=== PATIENT | male | born 1955 | race Caucasian/White ===

== ENCOUNTER 2021-09-19 14:01 | Observation (INO) | payer MEDICARE, OTHER, SELFPAY ==
--- NOTE | ~2021-09-19 | CT_ITS ---
EXAMINATION: CTA chest PE protocol DATE: 09/19/2021 15:15 TRANSPORTATION MODELER INDICATION: Covid. Dyspnea. TECHNIQUE: Computed tomographic angiography (CTA) of the chest was performed with 100 mL Omnipaque-35 0 intravenous contrast. The dose-length product was 646.20 mGy-cm. Maximum intensity projection 3D-re constructions of the aorta and other arteries were constructed by the technologist on a separate work station. Automated exposure control and iterative reconstruction technique were employed. COMPARISON: CT dated 01/28/2016. FINDINGS: Study is technically adequate. There are filling defects in subsegmental pulmonary arteries of the left lower lobe, consistent with pulmonary embolism. There is mild thoracic lymphadenopathy, likely reactive. No evidence for aortic aneurysm or dissection. No significant pleural or pericardial effusion. Heart size is normal. There is patchy bilateral groundglass opacification, consistent with pneumonia. There are calcified granulomas of the lung parenchyma. There is a 12 mm left renal stone. There is an extrarenal left renal pelvis. There is mild scoliosis. No acute osseous abnormality. IMPRESSION: 1. Pulmonary embolism of the left lower lobe subsegmental pulmonary arteries, small thrombus burden. 2: Patchy bilateral groundglass opacities, compatible with pneumonia. Reviewed, dictated and finalized at location A. SPORTATION MODELER IMPRESSION: 1. Pulmonary embolism of the left lower lobe subsegmental pulmonary arteries, s mall thrombus burden. 2: Patchy bilateral groundglass opacities, compatible with pneumonia.
--- NOTE | 2021-09-19 14:13 | ECG_ITS ---
Measurements Intervals [place] Rate: 96 P: 25 TX: 176 QRS: 48 QRSD: 91 T: 38 QT: 319 QTc: 405 Interpretive Statements SINUS RHYTHM INCOMPLETE RIGHT BUNDLE BRANCH BLOCK CONSIDER INFERIOR INFARCT, AGE INDETERMINATE BASELINE ARTIFACT- III, V2 ABNORMAL ECG Electronically Signed On 09-19-2021 15:05:50 BIOPSYCHOLOGIST by Pablito Eagle D.O.
[2021-09-19 14:20] VITALS: BP 134/81; PULSE 108; RESP 16; TEMP 37.2; O2SAT 99
--- NOTE | 2021-09-19 14:29 | ED.URI ---
HPI - URI/Sore Throat General Chief Complaint: Upper Respiratory Infection Stated Complaint: covid positive, sob Time Seen by Provider: 09/19/21 14:03 Source: RN notes reviewed History of Present Illness HPI Narrative: Patient presents emergency room from home for shortness of breath. Patient states he was diagnosed with COVID-19 with a positive test on 09/15/2021 and states has had symptoms since 09/12/2021 states has had a cough has been nonproductive with increasing shortness of breath as well as subjective fevers he denies any rhinorrhea chest pain abdominal pain vomiting or diarrhea but does note nausea states he did not receive the COVID-19 vaccination patient's test was done at [place] Related Data Allergies Allergy/AdvReac Type Severity Reaction Status Date / Time No Known Allergies Allergy Unverified 01/28/16 11:24 Review of Systems Review of Systems: Gen.: Reports objective fevers Eyes: Denies eye pain or visual change ENT: Denies congestion Respiratory: D see HPI CV: Denies chest pain or palpitations GI: Denies abdominal pain nausea, emesis or diarrhea Musculoskeletal: Denies back pain or muscle pain Neuro: Denies numbness, tingling, weakness or focal weakness Skin: Denies rash Except as documented, all other systems reviewed and negative FORMERLY [facility] Past Medical History Medical History (Updated 09/19/21 @ 15:37 by Kishan Arriaga DO) Patient denies significant medical history Family History Family History (Updated 06/22/14 @ 07:13 by DOCTOR UNKNOWN) Father Family history of heart disease in male family member before age 55 Patient's father is Mother Family history of heart disease in male family member before age 55 Sibling Family history of lung cancer Social History Social History Smoking status: Former smoker Second hand tobacco smoke exposure: No Smoking end date: 10/26/06 Alcohol intake: current Exam Narrative: APPEARANCE: No acute distress, nontoxic, resting in bed EYES: EOMI HEENT: Normocephalic, atraumatic, OMM RESPIRATORY: No respiratory distress Clear to auscultation bilaterally with no rhonchi wheezing or rales. CARDIOVASCULAR: Regular rate and rhythm without murmurs rubs or gallops. ABDOMINAL: Soft, nontender, nondistended, no rebound or guarding MUSCULOSKELETAl: Moves all extremities. No clubbing, cyanosis or edema. NEURO: Awake and alert. Following commands, speech normal, no focal deficits SKIN:: Warm, dry. No rashes lesions or abrasions PSYCHIATRIC: Normal affect/mood, Course Course Emergency Course: Discussed with RENA Muro for Dr Colmenares presentation work-up agrees with admission at this time agrees with plan start patient on Lovenox Discussed with patient and family results of workup and diagnosis. Discussed need for admission. Patient and family understand and agree to current treatment plan Vital Signs Vital signs: Vital Signs Temperature 99.0 F 09/19/21 14:20 Pulse Rate 108 H 09/19/21 14:20 Respiratory Rate 16 09/19/21 14:20 Blood Pressure 134/81 09/19/21 14:20 Pulse Oximetry 99 09/19/21 14:20 Temperature 99.0 F 09/19/21 14:20 Pulse Rate 108 H 09/19/21 14:20 Respiratory Rate 16 09/19/21 14:20 Blood Pressure 134/81 09/19/21 14:20 Pulse Oximetry 99 09/19/21 14:20 MDM - URI/Sore Throat Lab Data Result diagrams: 09/19/21 14:25 09/19/21 14:25 Labs: Lab Results 09/19/21 09/19/21 09/19/21 Range/Units 14:25 14:25 14:25 WBC 6.7 (4.5-10.0) K/mm3 RBC 4.95 (4.6-6.20) M/mm3 Hgb 15.5 (14.0-18.0) g/dL Hct 44.6 (42.0-52.0) % MCV 90.1 (80-100) fl MCH 31.3 (26-34) pg MCHC 34.8 (32-36) g/dl RDW 12.7 (11.5-14.5) % Plt Count 167 (150-375) k/mm3 MPV 9.5 (7.4-10.4) fl Immature Gran % (Auto) 0.6 H (0-0.5) % Neut % (Auto) 77.8 H (45.5-73.1) % Lymph % (Auto) 12
[2021-09-19 14:31] LABS: Basophils Percent Auto 0.3 % (0.2-1.2); Hematocrit 44.6 % (42.0-52.0); Hemoglobin 15.5 g/dL (14.0-18.0); Immature Granulocyte Absolute 0.04 K/mm3 (0.00-0.031); Immature Granulocyte Percent A 0.6 % (0-0.5); Lymphocytes Absolute Auto 0.83 K/mm3 (0.9-3.2); Lymphocytes Percent Auto 12.4 % (18.3-44.2); Mean Corpuscular HGB Conc 34.8 g/dl (32-36); Mean Corpuscular Hemoglobin 31.3 pg (26-34); Mean Corpuscular Volume 90.1 fl (80-100); Mean Platelet Volume 9.5 fl (7.4-10.4); Monocytes Absolute Auto 0.6 K/mm3 (0.1-0.6); Monocytes Percent Auto 8.9 % (2.6-8.5); Neutrophils Absolute Auto 5.2 K/mm3 (1.3-6.7); Neutrophils Percent Auto 77.8 % (45.5-73.1); Platelet Count Result 167 k/mm3 (150-375); Red Blood Count 4.95 M/mm3 (4.6-6.20); Red Cell Distribution Width 12.7 % (11.5-14.5); White Blood Count 6.7 K/mm3 (4.5-10.0)
[2021-09-19 14:47] LABS: Alanine Aminotransferase 26 U/L (4-50); Albumin Level 4.2 g/dL (3.5-5.1); Alkaline Phosphatase 93 U/L (38-126); Anion Gap 13 mmol/L (8-16); Aspartate Amino Transferase 26 U/L (17-59); Bilirubin,Total 0.7 mg/dL (0.2-1.3); Blood Urea Nitrogen 21 mg/dL (9-20); CRP 1.8 mg/dL (<1.0); Calcium 8.6 mg/dL (8.4-10.2); Carbon Dioxide 26 mmol/L (22-30); Chloride 97 mmol/L (98-107); Estimated Glomerular Filt Rate > 60; Glucose 125 mg/dL (65-110); Lactate Dehydrogenase 478 U/L (313-618); Potassium 4.1 mmol/L (3.4-5.0); Sodium 136 mmol/L (137-145)
[2021-09-19 15:01] LABS: Partial Thromboplastin Time 30.2 SECONDS (22.3-36.8); Prothrombin Time 12.8 Seconds (11.1-14.7)
[2021-09-19 15:04] LABS: D Dimer 1.27 ug/mL (<0.48)
[2021-09-19] MEDS: ENOXAPARIN 100 MG/ML SYRINGE 86 MG SUB-Q (15:55)
--- NOTE | 2021-09-19 16:00 | PM.IMHP ---
H&P: HPI History of Present Illness Date/Time: 09/19/21 16:00 Chief Complaint: Shortness of breath. 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 He began feeling unwell last with multiple symptoms including generalized malaise, sinus congestion, cough, nausea, decrease in taste and smell, and low-grade fever. He was seen at [facility] urgent [facility] last Thursday at which time he was prescribed doxycycline and a Medrol Dosepak for bronchitis. He was also tested for COVID at that time and was told that he tested positive a couple of days thereafter. He has been taking ibuprofen as needed and Mucinex although over the last several days he has been increasingly more short of breath and thus he came in today for evaluation. Chest CTA showed a pulmonary embolism of the left lower lobe subsegmental pulmonary arteries with a small thrombus burden as well as patchy bilateral ground-glass opacities compatible with pneumonia. He denies chest pain, pleuritic pain, and edema. No recent long distance travel or history of venous thromboembolism. He did not get vaccinated for COVID and received no early treatment for such aside from the Medrol Dosepak and doxycycline as above. Review of Systems Review of Systems: Twelve systems were reviewed. Except as documented, all other systems were reviewed and are negative. FOR[facility]LY [facility] Past Medical History Medical History (Updated 09/19/21 @ 22:13 by Jina Moore PA-C) Arthritis 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 Normal cardiac stress test (05/09/16) Obstructive sleep apnea treated with BiPAP Surgical History Surgical History (Updated 09/19/21 @ 22:13 by Jina Moore PA-C) History of cataract extraction Family History Family History Father Family history of heart disease in male family member before age 55 Hypertension Mother Hypertension Sibling Lung cancer Hypertension Social History Social History (Updated 09/19/21 @ 22:14 by Jina Moore PA-C) Social History: Surrogate decision maker: Malia Washington, daughter. Code status: Full code. Smoking packs per day: 1.5 Smoking cigarettes per day: 30.0 Years smoked: 20 Smoking pack-years: 30.00 Smoking status: Former smoker Tobacco type: cigarettes Second hand tobacco smoke exposure: No Alcohol intake: current Drinks per week: 3 Substance use: never Additional living arrangements comments: Patient lives in his own home in [place]. Additional occupation/education comments: Retired from the [employer] after 21 years. Meds Home Medications and Allergies Home Medications Medication Instructions Recorded Confirmed Type doxycycline hyclate 100 mg PO BID 09/19/21 09/19/21 History methylprednisolone See Rx Instructions .ROUTE .COMPLEX 09/19/21 09/19/21 History Allergies Allergy/AdvReac Type Severity Reaction Status Date / Time No Known Allergies Allergy Unverified 01/28/16 11:24 Vital Signs Vital Signs - 24 hr 09/19/21 14:20 Temperature 99.0 F Pulse Rate 108 H Respiratory Rate 16 Blood Pressure 134/81 Pulse Oximetry 99 Exam Narrative: General: Mildly ill-appearing male sitting up in bed. Weight: 86 kg. BMI: 26.4. HEENT: PERRL, EOMI. Sclerae anicteric. Tacky mucous membranes. Oropharynx clear. Neck: Supple. No JVD or adenopathy. Respiratory: Respirations are even and nonlabored and he is speaking in full sentences. Faint crackles heard at the left base with some rhonchi that clear with cough. Cardiovascular: Regular rate and rhythm with S1-S2. Gastrointestinal: Abdomen is soft, nontender, and non
[2021-09-19 16:15] LABS: NT Pro B Type Natriuretic Pept 61 pg/mL (5-100); Troponin I < 0.012 ng/mL (0.000-0.034)
[2021-09-19 16:40] VITALS: BP 123/77; PULSE 95; RESP 16; O2SAT 95
[2021-09-19] MEDS: ONDANSETRON INJ 4 MG/2 ML VIAL IV PUSH (18:13)
[2021-09-19 18:18] VITALS: BMI 26.4
--- NOTE | 2021-09-19 18:23 | ADMGEN ---
This patient, Albaro Washington, was admitted to 3 [facility] Surg Room 329-01 and 1715. Patient/family oriented to hospital policies and general routines including ID bracelet, bed and alarms, visiting hours, pain management, procedures, bathroom and other care routines, personal items, smoking policy, room service/diet, and visiting hours. Information on how to activate the Rapid Response Team has been discussed. Patient/Family are encouraged to report perceived risks to care and to ask questions if they do not understand what they are told or what they should do.
[2021-09-19 20:00] VITALS: PULSE 93
[2021-09-19] MEDS: DOXYCYCLINE HYCLATE 100 MG TABLET PO (23:29)
[2021-09-19] MEDS: guaiFENesin 12 HR 600 MG TABCR PO (23:29)
[2021-09-19 23:43] VITALS: BP 118/69; PULSE 84; RESP 16; TEMP 38; O2SAT 95
[2021-09-20] VITALS (10 sets, daily range): BP systolic 117–126; BP diastolic 71–84; PULSE 45–99; RESP 16–20; TEMP 36.1–37; O2SAT 91–97
[2021-09-20] MEDS: ENOXAPARIN 100 MG/ML SYRINGE 86 MG SUB-Q ×2 (05:38→18:11)
[2021-09-20 08:10] LABS: Basophils Percent Auto 0.3 % (0.2-1.2); Hematocrit 41.1 % (42.0-52.0); Hemoglobin 14.1 g/dL (14.0-18.0); Immature Granulocyte Absolute 0.04 K/mm3 (0.00-0.031); Immature Granulocyte Percent A 0.6 % (0-0.5); Lymphocytes Percent Auto 24.8 % (18.3-44.2); Mean Corpuscular HGB Conc 34.3 g/dl (32-36); Mean Corpuscular Hemoglobin 30.7 pg (26-34); Mean Corpuscular Volume 89.5 fl (80-100); Monocytes Absolute Auto 0.7 K/mm3 (0.1-0.6); Monocytes Percent Auto 9.8 % (2.6-8.5); Neutrophils Absolute Auto 4.7 K/mm3 (1.3-6.7); Neutrophils Percent Auto 64.5 % (45.5-73.1); Platelet Count Result 177 k/mm3 (150-375); Red Blood Count 4.59 M/mm3 (4.6-6.20); Red Cell Distribution Width 12.8 % (11.5-14.5); White Blood Count 7.3 K/mm3 (4.5-10.0)
[2021-09-20 08:22] LABS: Anion Gap 6 mmol/L (8-16); Blood Urea Nitrogen 20 mg/dL (9-20); Calcium 8.4 mg/dL (8.4-10.2); Carbon Dioxide 30 mmol/L (22-30); Chloride 99 mmol/L (98-107); Estimated CRCL calculation 78 ml/min; Estimated Glomerular Filt Rate > 60; Glucose 116 mg/dL (65-110); Potassium 4.3 mmol/L (3.4-5.0); Sodium 135 mmol/L (137-145)
[2021-09-20] MEDS: DOXYCYCLINE HYCLATE 100 MG TABLET PO ×2 (09:23→21:01)
[2021-09-20] MEDS: guaiFENesin 12 HR 600 MG TABCR PO ×2 (09:23→21:01)
[2021-09-20] MEDS: ASCORBIC ACID 500 MG TABLET PO (09:23)
[2021-09-20 11:57] LABS: Glucose Point of Care 87 mg/dl (65-105)
[2021-09-20] MEDS: CHOLECALCIFEROL 400 UNITS TABLET (VIT D) PO (12:10)
[2021-09-20] MEDS: ZINC SULFATE 220 MG CAPSULE PO (12:10)
--- NOTE | 2021-09-20 14:58 | PM.IMPN ---
Progress Note: A&P Assessment and Plan (1) Pneumonia: Code(s): J18.9 - Pneumonia, unspecified organism Status: Acute (2) COVID-19: Code(s): U07.1 - COVID-19 Status: Acute (3) Pulmonary embolism: Code(s): I26.99 - Other pulmonary embolism without acute cor pulmonale Status: Acute Additional Plan The patient presented to the emergency department today with worsening shortness of breath over last several days though he has not felt well for about a week. He was seen at [place] urgent care last Thursday at which time he tested positive for COVID 19. He was given a Medrol Dosepak and finished that yesterday and he still has several days left of the doxycycline. Continue doxycycline to complete the course. He has no oxygen requirements thus there is no indication for further steroids or remdesivir. He has been started on Lovenox 1 milligram/kilogram b.i.d. given subsegmental pulmonary embolism, likely secondary to COVID-19. Obtain venous Doppler ultrasounds of lower legs to evaluate for possible DVT. I will ask the care coronary as to hicks Kurtis with his insurance company. He is having no chest pain within normal be and P and troponin there is no indication for echocardiogram at this time. 09/20/21 14:58 Interval history: patient is 65-year-old male was admitted with a cough shortness of breath patient is positive for COVID-19 and is found to her pneumonia suspicious for aspiration and being treated with Zosyn will add doxycycline, for COVID patient is also low-dose of dexamethasone, patient is sitting in the chair, today patient states is feeling little better patient is on room air, will continue to monitor and further recommendation to follow. Subjective Date/time seen: 09/20/21 14:58 patient is 65-year-old male was admitted with a cough shortness of breath patient is positive for COVID-19 and is found to her pneumonia suspicious for aspiration and being treated with Zosyn will add doxycycline, for COVID patient is also low-dose of dexamethasone, patient is sitting in the chair, today patient states is feeling little better patient is on room air, will continue to monitor and further recommendation to follow. Review of Systems Review of Systems: All systems reviewed & are unremarkable except as noted in HPI and below Exam Narrative: patient appears chronically ill older than his age Patient is comfortable, NAD HEENT: eyes are clear and none icteric LUNGS: normal respiratory effort ABD: not distended Lower extremities: no edema SKIN: nonjaundiced Neuro: grossly intact. Objective Data Vital Signs Vital Signs: Vital Signs - 24 hr 09/19/21 16:40 09/19/21 20:00 09/19/21 23:43 Temperature 100.4 F H Pulse Rate 95 93 84 Respiratory Rate 16 16 Blood Pressure 123/77 118/69 Pulse Oximetry 95 95 09/20/21 00:00 09/20/21 04:00 09/20/21 08:00 Temperature 98.4 F Pulse Rate 81 85 79 Respiratory Rate 18 Blood Pressure 126/71 Pulse Oximetry 97 09/20/21 08:46 09/20/21 12:10 Temperature 98.4 F 98.6 F Pulse Rate 85 45 L Respiratory Rate 18 16 Blood Pressure 117/76 126/79 Pulse Oximetry 95 92 Intake/Output Intake/Output: Intake & Output 09/17/21 09/18/21 09/19/21 09/20/21 23:59 23:59 23:59 23:59 Intake Total 240 Balance 240 Meds/Results Medications: Active Medications Generic Name Dose Route Start Last Admin Trade Name Freq PRN Reason Stop Dose Admin Acetaminophen 650 mg 09/20/21 01:30 Acetaminophen 325 Mg Tablet PO Q4H PRN Pain or Fever Albuterol 2 puff 09/19/21 22:21 Albuterol Sulfate (*Sp) Aerosol 1 Puff INHALATION QIDRT PRN Shortness Of Breath Ascorbic Acid 500 mg 09/20/21 09:00 09/20/21 09:23 Ascorbic Acid 500 Mg Tablet PO 500 mg DAILY DULCE Administration Dexamethasone Sodium Phosphate 10 mg 09/20/21 12:00 09/20/21 13:38 Dexamethasone Sod Phos Inj 10 Mg/Ml 1 Ml Vial IV PUSH 10 mg [id number]
[2021-09-20 16:44] LABS: Glucose Point of Care 160 mg/dl (65-105)
[2021-09-21] VITALS (8 sets, daily range): BP systolic 105–130; BP diastolic 68–85; PULSE 60–84; RESP 16–18; TEMP 35.5–36.6; O2SAT 94–98
[2021-09-21 06:18] LABS: Hematocrit 41.6 % (42.0-52.0); Hemoglobin 14.6 g/dL (14.0-18.0); Mean Corpuscular HGB Conc 35.1 g/dl (32-36); Mean Corpuscular Hemoglobin 31.3 pg (26-34); Mean Corpuscular Volume 89.3 fl (80-100); Platelet Count Result 173 k/mm3 (150-375); Red Blood Count 4.66 M/mm3 (4.6-6.20); Red Cell Distribution Width 12.2 % (11.5-14.5); White Blood Count 3.4 K/mm3 (4.5-10.0)
[2021-09-21 06:32] LABS: Anion Gap 7 mmol/L (8-16); Blood Urea Nitrogen 20 mg/dL (9-20); Calcium 8.8 mg/dL (8.4-10.2); Carbon Dioxide 28 mmol/L (22-30); Chloride 100 mmol/L (98-107); Estimated CRCL calculation 98 ml/min; Estimated Glomerular Filt Rate > 60; Glucose 143 mg/dL (65-110); Potassium 4.3 mmol/L (3.4-5.0); Sodium 135 mmol/L (137-145)
[2021-09-21] MEDS: ENOXAPARIN 100 MG/ML SYRINGE 86 MG SUB-Q ×2 (06:47→18:05)
[2021-09-21] MEDS: DOXYCYCLINE HYCLATE 100 MG TABLET PO ×2 (09:10→21:12)
[2021-09-21] MEDS: CHOLECALCIFEROL 400 UNITS TABLET (VIT D) PO (09:10)
[2021-09-21] MEDS: ASCORBIC ACID 500 MG TABLET PO (09:10)
[2021-09-21] MEDS: guaiFENesin 12 HR 600 MG TABCR PO ×2 (09:10→21:11)
[2021-09-21] MEDS: ZINC SULFATE 220 MG CAPSULE PO (11:39)
--- NOTE | 2021-09-21 13:47 | PM.IMPN ---
Progress Note: A&P Assessment and Plan (1) Pneumonia: Code(s): J18.9 - Pneumonia, unspecified organism Status: Acute (2) COVID-19: Code(s): U07.1 - COVID-19 Status: Acute (3) Pulmonary embolism: Code(s): I26.99 - Other pulmonary embolism without acute cor pulmonale Status: Acute Additional Plan The patient presented to the emergency department today with worsening shortness of breath over last several days though he has not felt well for about a week. He was seen at [place] urgent care last Thursday at which time he tested positive for COVID 19. He was given a Medrol Dosepak and finished that yesterday and he still has several days left of the doxycycline. Continue doxycycline to complete the course. He has no oxygen requirements thus there is no indication for further steroids or remdesivir. He has been started on Lovenox 1 milligram/kilogram b.i.d. given subsegmental pulmonary embolism, likely secondary to COVID-19. Obtain venous Doppler ultrasounds of lower legs to evaluate for possible DVT. I will ask the care coronary as to hicks Kurtis with his insurance company. He is having no chest pain within normal be and P and troponin there is no indication for echocardiogram at this time. 09/20/21 14:58 Interval history: patient is 65-year-old male was admitted with a cough shortness of breath patient is positive for COVID-19 and is found to her pneumonia suspicious for aspiration and being treated with Zosyn will add doxycycline, for COVID patient is also low-dose of dexamethasone, patient is sitting in the chair, today patient states is feeling little better patient is on room air, will continue to monitor and further recommendation to follow. 09/21/21Interval history: today patient remains clinically stable, patient is lying in the is feeling much better denies any cough or shortness of breath, denies any fever or chills. continue to monitor remains clinically stable will discharge the patient home tomorrow. Subjective Date/time seen: 09/21/21 13:47 09/20/21 Interval history: patient is 65-year-old male was admitted with a cough shortness of breath patient is positive for COVID-19 and is found to her pneumonia suspicious for aspiration and being treated with Zosyn will add doxycycline, for COVID patient is also low-dose of dexamethasone, patient is sitting in the chair, today patient states is feeling little better patient is on room air, will continue to monitor and further recommendation to follow. 09/21/21Interval history: today patient remains clinically stable, patient is lying in the is feeling much better denies any cough or shortness of breath, denies any fever or chills. continue to monitor remains clinically stable will discharge the patient home tomorrow. Review of Systems Review of Systems: All systems reviewed & are unremarkable except as noted in HPI and below Exam Narrative: patient appears chronically ill older than his age Patient is comfortable, NAD HEENT: eyes are clear and none icteric LUNGS: normal respiratory effort ABD: not distended Lower extremities: no edema SKIN: nonjaundiced Neuro: grossly intact. Objective Data Vital Signs Vital Signs: Vital Signs - 24 hr 09/20/21 16:00 09/20/21 16:48 09/20/21 20:00 Temperature 98.4 F 96.9 F L Pulse Rate 98 99 93 Respiratory Rate 18 20 Blood Pressure 122/84 118/74 Pulse Oximetry 91 96 09/20/21 23:07 09/21/21 00:00 09/21/21 04:00 Temperature 96 F L 97 F L Pulse Rate 84 60 Respiratory Rate 16 18 Blood Pressure 105/73 111/85 Pulse Oximetry 95 96 96 09/21/21 08:00 09/21/21 11:57 Temperature 97.8 F 97.0 F L Pulse Rate 64 64 Respiratory Rate 16 18 Blood Pressure 107/71 107/68 Pulse Oximetry 94 96 Intake/Output Intake/Output: Intake & Output 09/18/21 09/19/21 09/20/21 09/21/21 23:59 23:59 23:59 23:59 Intake Total 1050 660 Balance 1050 660 Meds/Results Medications: Active Medica
[2021-09-22] VITALS: BP 119/78; PULSE 60; PULSE 62; RESP 18; TEMP 36.3; O2SAT 97
[2021-09-22 04:00] VITALS: BP 114/71; PULSE 60; RESP 18; TEMP 36.3; O2SAT 99
[2021-09-22] MEDS: ENOXAPARIN 100 MG/ML SYRINGE 86 MG SUB-Q (05:28)
[2021-09-22 06:52] LABS: Hematocrit 39.4 % (42.0-52.0); Mean Corpuscular HGB Conc 35.5 g/dl (32-36); Mean Corpuscular Hemoglobin 30.6 pg (26-34); Mean Platelet Volume 10.2 fl (7.4-10.4); Platelet Count Result 197 k/mm3 (150-375); Red Blood Count 4.58 M/mm3 (4.6-6.20); Red Cell Distribution Width 11.9 % (11.5-14.5); White Blood Count 7.4 K/mm3 (4.5-10.0)
[2021-09-22 07:00] LABS: Anion Gap 7 mmol/L (8-16); Blood Urea Nitrogen 21 mg/dL (9-20); Calcium 8.5 mg/dL (8.4-10.2); Carbon Dioxide 25 mmol/L (22-30); Chloride 102 mmol/L (98-107); Estimated CRCL calculation 85 ml/min; Estimated Glomerular Filt Rate > 60; Glucose 110 mg/dL (65-110); Potassium 3.8 mmol/L (3.4-5.0); Sodium 134 mmol/L (137-145)
[2021-09-22 08:00] VITALS: BP 108/74; PULSE 63; PULSE 88; RESP 18; TEMP 36.4; O2SAT 97
[2021-09-22] MEDS: CHOLECALCIFEROL 400 UNITS TABLET (VIT D) PO (09:01)
[2021-09-22] MEDS: guaiFENesin 12 HR 600 MG TABCR PO (09:01)
[2021-09-22] MEDS: ASCORBIC ACID 500 MG TABLET PO (09:01)
[2021-09-22] MEDS: DOXYCYCLINE HYCLATE 100 MG TABLET PO (09:01)
--- NOTE | 2021-09-22 11:25 | PM.DS ---
DS: Admitting Diagnosis Discharge Date 09/22/2021 Admitting Diagnosis shortness DS: Discharge Diagnosis Discharge Diagnosis (1) Pneumonia: Code(s): J18.9 - Pneumonia, unspecified organism Status: Acute (2) COVID-19: Code(s): U07.1 - COVID-19 Status: Acute (3) Pulmonary embolism: Code(s): I26.99 - Other pulmonary embolism without acute cor pulmonale Status: Acute DS: Summary Hospital Course Reason for hospitalization: Chief Complaint: Shortness of breath. 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 He began feeling unwell last with multiple symptoms including generalized malaise, sinus congestion, cough, nausea, decrease in taste and smell, and low-grade fever. He was seen at [place] urgent care last Thursday at which time he was prescribed doxycycline and a Medrol Dosepak for bronchitis. He was also tested for COVID at that time and was told that he tested positive a couple of days thereafter. He has been taking ibuprofen as needed and Mucinex although over the last several days he has been increasingly more short of breath and thus he came in today for evaluation. Chest CTA showed a pulmonary embolism of the left lower lobe subsegmental pulmonary arteries with a small thrombus burden as well as patchy bilateral ground-glass opacities compatible with pneumonia. He denies chest pain, pleuritic pain, and edema. No recent long distance travel or history of venous thromboembolism. He did not get vaccinated for COVID and received no early treatment for such aside from the Medrol Dosepak and doxycycline as above. Hospital Course: The patient presented to the emergency department today with worsening shortness of breath over last several days though he has not felt well for about a week. He was seen at [place] urgent care last Thursday at which time he tested positive for COVID 19. He was given a Medrol Dosepak and finished that yesterday and he still has several days left of the doxycycline. Continue doxycycline to complete the course. He has no oxygen requirements thus there is no indication for further steroids or remdesivir. He has been started on Lovenox 1 milligram/kilogram b.i.d. given subsegmental pulmonary embolism, likely secondary to COVID-19. Obtain venous Doppler ultrasounds of lower legs to evaluate for possible DVT. I will ask the care coronary as to hicks Kurtis with his insurance company. He is having no chest pain within normal be and P and troponin there is no indication for echocardiogram at this time. 09/20/21 14:58 Interval history: patient is 65-year-old male was admitted with a cough shortness of breath patient is positive for COVID-19 and is found to her pneumonia suspicious for aspiration and being treated with Zosyn will add doxycycline, for COVID patient is also low-dose of dexamethasone, patient is sitting in the chair, today patient states is feeling little better patient is on room air, will continue to monitor and further recommendation to follow. 09/21/21Interval history: today patient remains clinically stable, patient is lying in the is feeling much better denies any cough or shortness of breath, denies any fever or chills. continue to monitor remains clinically stable will discharge the patient home tomorrow. patient remains clinically stable is no new complaint, patient on room air not requiring any oxygen and has no fever, will will start the patient the on Eliquis for pulmonary emboli, patient will complete the course of doxycycline and Medrol Dosepak. Status at Discharge Functional status at discharge: independent ambulation Overall status at discharge: wyatt
[2021-09-22 12:00] VITALS: BP 118/68; PULSE 63; PULSE 66; RESP 18; TEMP 36.3; O2SAT 97
[2021-09-22] MEDS: ZINC SULFATE 220 MG CAPSULE PO (12:27)
[2021-09-22 16:00] VITALS: BP 119/73; PULSE 73; PULSE 75; RESP 19; TEMP 36.8; O2SAT 95
[2021-09-22] MEDS: APIXABAN 5 MG TABLET 10 MG PO (17:21)
== END 2021-09-22 18:55 | disposition home or self-care (01) ==
LOC: ANHED 15:37 → ANH3MEDSUR 18:49
PROVIDERS: Admitting Provider Internal Medicine; Emergency Provider Emergency Medicine; Visit Provider Family Medicine
DX: U07.1 COVID-19 (principal); J12.82 Pneumonia due to coronavirus disease 2019; I26.99 Other pulmonary embolism without acute cor pulmonale; R06.02 Shortness of breath; G47.33 Obstructive sleep apnea (adult) (pediatric); Z87.891 Personal history of nicotine dependence
CPT/HCPCS: 36415; 71275; 80048; 80053; 82948; 83615; 83880; 84484; 85025; 85027; 85380; 85610; 85730; 86140; 93005; 96365; 96372; 96374; 96375; 99285; A9270; G0378; J1100; J1650; J2405; J2543; Q9967

== ENCOUNTER 2024-09-08 10:07 | Emergency (ER) | payer MEDICARE, OTHER, SELFPAY ==
[2024-09-08] VITALS (20 sets, daily range): BP systolic 127–152; BP diastolic 80–97; PULSE 76–121; RESP 12–20; TEMP 36.3–36.8; O2SAT 95–100
--- NOTE | ~2024-09-08 | XR_ITS ---
EXAMINATION: XR chest 2V DATE: 09/08/2024 11:41 INDICATION: Right-sided chest pain TECHNIQUE: frontal and lateral views of the chest were obtained. COMPARISON: Chest radiograph dated 01/28/[address] dated 09/19/2021 FINDINGS: The lungs are clear with no focal airspace opacities, pulmonary edema, pleural effusion or pneumothor ax. The cardiomediastinal silhouette is normal. Moderate S-shaped curvature of the thoracic spine wit h severe spondylosis. IMPRESSION: 1. No acute cardiopulmonary disease. Reviewed, dictated and finalized at location B. D EXAMINER
--- NOTE | ~2024-09-08 | CT_ITS ---
EXAMINATION: CT brain wo con DATE: 09/08/2024 13:01 INDICATION: Dizziness. TECHNIQUE: Computed tomography (CT) of the head was performed without intravenous contrast. The mA wa s adjusted according to patient size. Iterative reconstruction technique was employed. The dose-lengt h product was 605.33 mGy-cm. COMPARISON: None FINDINGS: There are scattered areas of low attenuation in the cerebral white matter. There is no intr acranial hemorrhage, acute infarction, or abnormal intracranial mass lesion. The ventricles are allison l in size. There are likely changes of ocular lens replacement surgeries. There is an old blowout fra cture of floor of right orbit. There is a trace left mastoid effusion. IMPRESSION: 1. Mild nonspecific cerebral white matter disease, which likely represents chronic small vessel ische yoshi disease. Reviewed, dictated and finalized at location A. NE HOSTLER IMPRESSION: 1. Mild nonspecific cerebral white matter disease, which likely represents buffer chrome charlie small vessel ischemic disease.
--- NOTE | 2024-09-08 10:11 | ECG_ITS ---
Test Date: 2024-09-08 13:26:08 Measurements Intervals [place] Rate: 107 P: 34 NE: 191 QRS: 138 QRSD: 95 T: 26 QT: 328 QTc: 438 Interpretive Statements SINUS TACHYCARDIA RIGHT AXIS DEVIATION INCOMPLETE RIGHT BUNDLE BRANCH BLOCK PROBABLE INFERIOR MYOCARDIAL INFARCTION , PROBABLY OLD ABNORMAL ECG No previous ECG available for comparison Electronically Signed On 09-08-2024 14:04:03 SUPERVISOR WATERPROOFING by Pablito Eagle D.O.
[2024-09-08 10:26] LABS: Basophils Percent Auto 0.4 % (0.2-1.2); Eosinophils Absolute Auto 0.2 K/mm3 (0-0.3); Eosinophils Percent Auto 2.3 % (0-4.4); Hemoglobin 16.6 g/dL (14.0-18.0); Immature Granulocyte Absolute 0.02 K/mm3 (0.00-0.031); Immature Granulocyte Percent A 0.3 % (0-0.5); Lymphocytes Absolute Auto 2.24 K/mm3 (0.9-3.2); Lymphocytes Percent Auto 32.1 % (18.3-44.2); Mean Corpuscular HGB Conc 34.6 g/dl (32-36); Mean Corpuscular Volume 89.7 fl (80-100); Mean Platelet Volume 9.4 fl (7.4-10.4); Monocytes Absolute Auto 0.4 K/mm3 (0.1-0.6); Neutrophils Absolute Auto 4.1 K/mm3 (1.3-6.7); Neutrophils Percent Auto 58.9 % (45.5-73.1); Platelet Count Result 224 k/mm3 (150-375); Red Blood Count 5.35 M/mm3 (4.6-6.20); Red Cell Distribution Width 12.1 % (11.5-14.5)
[2024-09-08 10:37] LABS: Alanine Aminotransferase 20 U/L (6-50); Albumin Level 4.5 g/dL (3.5-5.1); Alkaline Phosphatase 90 U/L (38-126); Anion Gap 10 mmol/L (4-12); Aspartate Amino Transferase 20 U/L (17-59); Bilirubin,Total 0.9 mg/dL (0.2-1.3); Blood Urea Nitrogen 25 mg/dL (9-20); Calcium 8.9 mg/dL (8.4-10.2); Carbon Dioxide 28 mmol/L (22-30); Chloride 103 mmol/L (98-107); Estimated CRCL calculation 62 ml/min; Estimated Glomerular Filt Rate > 60; Glucose 119 mg/dL (65-110); Lipase 52 U/L (23-300); Potassium 4.3 mmol/L (3.4-5.0); Sodium 141 mmol/L (137-145)
[2024-09-08 10:43] LABS: Prothrombin Time 13.7 Seconds (11.1-14.7)
[2024-09-08 10:44] LABS: Partial Thromboplastin Time 29.2 Seconds (22.3-36.8)
[2024-09-08 10:49] LABS: Troponin I < 0.012 ng/mL (0.000-0.034)
--- NOTE | 2024-09-08 12:50 | ED_ITS ---
HPI - Chest Pain General Chief Complaint: Chest Pain Stated Complaint: CP after taking 50mg THC Time Seen by Provider: 09/08/24 12:24 Source: patient Mode of arrival: ambulatory Limitations: no limitations History of Present Illness HPI narrative: 68 YEARS OLD WHITE MALE, HEALTHY OTHERWISE, NOT ON ANY MEDICATIONS, USED THC GUMMY FOR THE 1ST TIME AT 9:00 A.M. THIS MORNING , BECAUSE HIS BIRTHDAY IS COMING SOON. WITHIN 15 MINUTES PATIENT STARTED HAVING CHEST DISCOMFORT, LIGHTHEADEDNESS, TIRED, FEELING OFF, WHICH GRADUALLY IMPROVING. CURRENTLY HIS CHEST DISCOMFORT IS 1/10 COMPARED TO 10/10 EARLY TODAY. PATIENT DOES NOT SMOKE CIGARETTES, DRINK ALCOHOL OCCASIONALLY, DOES NOT USE DRUGS, LIVES ALONE Related Data Home Medications Medication Instructions Recorded Confirmed cetirizine 10 mg tablet 10 mg PO DAILY PRN 06/09/24 07/18/24 guaifenesin 600 mg tablet, 600 mg PO BID 06/09/24 07/18/24 extended release 12 hr (Mucinex) testosterone 1.62 % (20.25 mg/1.25 topical 06/09/24 07/18/24 gram) transdermal gel packet Allergies Allergy/AdvReac Type Severity Reaction Status Date / Time No Known Allergies Allergy Verified 07/07/24 08:42 Review of Systems Review of Systems: All systems reviewed & are unremarkable except as noted in HPI and below PMFSH Past Medical History Medical History Arthritis 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 Normal cardiac stress test (05/09/16) Obstructive sleep apnea treated with BiPAP Pulmonary embolism Surgical History Surgical History History of cataract extraction 2020 Family History Family History Father Family history of heart disease in male family member before age 55 Hypertension Mother Hypertension Sibling Lung cancer Hypertension Social History Social History Social History: Surrogate decision maker: Malia [place], daughter. Code status: Full code. Smoking packs per day: 1.5 Smoking cigarettes per day: 30.0 Years smoked: 20 Smoking pack-years: 30.00 Smoking status: Former smoker Tobacco type: cigarettes Second hand tobacco smoke exposure: No Alcohol intake: current Drinks per week: 3 Substance use: never Do You Feel Safe in your Home?: Yes Lack of Transportation: No Lack of Food: Never True Current Housing: I Have Housing Concerned About Future Housing: No Difficulty Paying Gas/Electric Bills: No Difficulty Paying for Meds: No Currently Unemployed: No Education: Bachelor's Degree Difficulty w/ Childcare or Family Care: No Living arrangements: alone Additional living arrangements comments: Patient lives in his own home in [place]. Additional occupation/education comments: Retired from the [employer] after 21 years. Gender identity (if verbalized by the patient): Male Exam Narrative: GENERAL APPEARANCE: WELL-DEVELOPED, WELL-NOURISHED SKIN: NORMAL COLOR HEAD: NORMOCEPHALIC, NONTRAUMATIC EYES: CLEAR CONJUNCTIVA ENT: OROPHARYNX NORMAL, EARS NORMAL, NOSE NORMAL NECK: SUPPLE, NONTENDER CHEST AND RESPIRATORY: AIRWAY PATENT, NO RESPIRATORY DISTRESS, NO ACCESSORY MUSCLE USE HEART: REGULAR RATE/RHYTHM ABDOMEN: SOFT, NONTENDER, NO ORGANOMEGALY, QUIET BOWEL SOUNDS VASCULAR: NORMAL PERIPHERAL PULSES, NORMAL CAPILLARY REFILL. MUSCULOSKELETAL: NORMAL RANGE OF MOTION, NONTENDER BACK NEUROLOGIC: ALERT AND ORIENTED ?3, CONSULTING SOFTWARE ENGINEER IS NORMAL TESTED, NO GROSS MOTOR DEFICIT Course Vital Signs Vital signs: Vital Signs Temperature 36.3 C L 09/08/24 10:12 Pulse Rate 92 09/08/24 10:12 Respiratory Rate 18 09/08/24 10:12 Blood Pressure 152/97 H 09/08/24 10:12 Pulse Oximetry 96 09/08/24 10:12 Oxygen Delivery Room Air 09/08/24 10:12 Temperature 36.3 C L 09/08/24 10:12 Pulse Rate 121 H 09/08/24 15:45 Respiratory Rate 14 09/08/24 12:35 Blood Pressure 141/87 H 09/08/24 15:45 Pulse Oximetry 100 09/08/24 12:35 Oxygen Delivery Room Air 09/08/24 12:41 MDM - Chest Pain MDM Narrative Medical decision making narrative: PATIENT TO USE T HC GUM ME FOR THE 1ST TIME THIS MORNING SUBSEQUENTLY STARTED HAVING CHEST PAIN LIGHTHEADEDNESS WEAKNESS AND OF FEELING. VITAL SIGNS STABLE PHYSICAL EXAMINATION SHOWED SLIGHT ANXIETY, OTHERWISE INSIGNIFICANT DIFFERENTIAL DIAGNOSIS MARIJUANA INDUCED SYMPTOMS, ATYPICAL CHEST PAIN. WORKUP TODAY SHOWED CBC INSIGNIFICANT ABNORMALITY CMP INSIGNIFICANT ABNORMALITY TROPONIN WITHIN NORMAL LIMIT CT HEAD SHOWED NO ACUTE ABNORMALITIES CHEST X-RAY SHOWED NO ACUTE ABNORMALITY 8 HOURS AFTER HAVING THE GUMMY PATIENT STARTED FEELING MUCH BETTER, WAS ABLE TO STAND UP AND GO TO THE BATHROOM WITHOUT BROADCAST OPERATIONS DIRECTOR, NO MORE LIGHTHEADEDNESS OR DIZZINESS. OR CHEST PAIN. THE PT WAS DISCHARGED TO HOME.THE PT,S CONDITION UPON DISCHARGE WAS FAIR,EDUCATION WAS PROVIDED TO THE PT IN REFERENCE TO THE FINAL IMPRESSIO N,DISCHARGE STUDY RESULTS,TREATMENT,PROGNOSIS AND NEED FOR FOLLOW UP . Differential Diagnosis Differential diagnosis: Likely other ( ABOVE) Medical Records Data Attestation: I reviewed the patient's medical records. Lab Data Attestation: I reviewed the patient's lab results. 09/08/24 10:19 09/08/24 10:19 Labs: Lab Results 09/08/24 09/08/24 Range/Units 10:19 13:58 WBC 7.0 (4.5-10.0) K/mm3 RBC 5.35 (4.6-6.20) M/mm3 Hgb 16.6 (14.0-18.0) g/dL Hct 48.0 (42.0-52.0) % MCV 89.7 (80-100) fl MCH 31.0 (26-34) pg MCHC 34.6 (32-36) g/dl RDW 12.1 (11.5-14.5) % Plt Count 224 (150-375) k/mm3 MPV 9.4 (7.4-10.4) fl Immature Gran % (Auto) 0.3 (0-0.5) % Neut % (Auto) 58.9 (45.5-73.1) % Lymph % (Auto) 32.1 (18.3-44.2) % Rhea % (Auto) 6.0 (2.6-8.5) % Eos % (Auto) 2.3 (0-4.4) % Baso % (Auto) 0.4 (0.2-1.2) % Lymph # (Auto) 2.24 (0.9-3.2) K/mm3 Rhea # (Auto) 0.4 (0.1-0.6) K/mm3 Eos # (Auto) 0.2 (0-0.3) K/mm3 Baso # (Auto) 0.0 (0.0-0.1) K/mm3 Abs Immat Gran (auto) 0.02 (0.00-0.031) K/mm3 Absolute Neuts (auto) 4.1 (1.3-6.7) K/mm3 Absolute Nucleated RBC 0.000 (0.0-0.012) K/mm3 Nucleated RBC % 0.0 (0.0-0.2) % PT 13.7 (11.1-14.7) Seconds INR 1.0 APTT 29.2 (22.3-36.8) Seconds Sodium 141 (137-145) mmol/L Potassium 4.3 (3.4-5.0) mmol/L Chloride 103 (98-107) mmol/L Carbon Dioxide 28 (22-30) mmol/L Anion Gap 10 (4-12) mmol/L BUN 25 H (9-20) mg/dL Creatinine 1.10 (0.7-1.3) mg/dL Estim Creat Clear Calc 62 ml/min Estimated GFR > 60 (59 - ) Glucose 119 H (65-110) mg/dL Calcium 8.9 (8.4-10.2) mg/dL Total Bilirubin 0.9 (0.2-1.3) mg/dL AST 20 (17-59) U/L ALT 20 (6-50) U/L Alkaline Phosphatase 90 (38-126) U/L Troponin I < 0.012 < 0.012 (0.000-0.034) ng/mL Total Protein 8.0 (6.3-8.2) g/dL Albumin 4.5 (3.5-5.1) g/dL Lipase 52 (23-300) U/L Imaging Data Radiologist's impression: Impressions Chest X-Ray 09/08/24 11:55 IMPRESSION: 1. No acute cardiopulmonary disease. Head CT 09/08/24 13:02 IMPRESSION: 1. Mild nonspecific cerebral white matter disease, which likely represents chronic small vessel ischemic disease. ECG Data EKG #1: Attestation: I personally reviewed and interpreted this ECG as follows: ECG completion date: 09/08/24 Prior ECG tracings: not available for review Interpretation: SINUS TACHYCARDIA AT 107 BEATS PER MINUTE, RIGHT AXIS DEVIATION, INCOMPLETE RIGHT BUNDLE-BRANCH BLOCK, PROBABLE INFERIOR MYOCARDIAL INFARCTION, PROBABLY OLD, ABNORMAL EKG, NO PREVIOUS EKG AVAILABLE FOR COMPARISON. Critical Care Time Critical Care Time Critical Care Time: No Discharge Plan Discharge Clinical Impression: Cannabis abuse with cannabis-induced disorder Patient Disposition: Home, Self-Care Condition: Stable Instructions: Cannabis Use Disorder (ED) Additional Instructions: RETURN IF SYMPTOMS ARE WORSENING , CALL YOUR FAMILY PHYSICIAN FOR APPOINTMENT, TAKE TYLENOL NEEDED FOR ACHES AND PAIN, CONTINUE HOME MEDICATIONS. DO NOT USE THC GUMMY ANYMORE Prescriptions: No Action guaifenesin [Mucinex] 600 mg tablet extended release 12hr 600 mg PO BID cetirizine 10 mg tablet 10 mg PO DAILY PRN testosterone 1.62 % (20.25 mg/1.25 gram) gel in packet topical Flonase Sensimist 27.5 mcg/actuation spray,suspension 1 spray intranasal DAILY Qty: 9.1 0RF Rx Instructions: into each nostril modafinil [Provigil] 200 mg tablet 400 mg PO QAM Qty: 60 0RF Follow-up/Referrals: Michelle Umanzor APRN [Primary Care Provider] -
--- NOTE | 2024-09-08 14:21 | ECG_ITS ---
Test Date: 2024-09-08 14:47:21 Measurements Intervals Hurricane Rate: 113 P: 40 ID: 191 QRS: 154 QRSD: 103 T: 20 QT: 329 QTc: 453 Interpretive Statements SINUS TACHYCARDIA RIGHT AXIS DEVIATION INCOMPLETE RIGHT BUNDLE BRANCH BLOCK INFERIOR INFARCT, AGE INDETERMINATE ABNORMAL ECG Compared to ECG 09/08/2024 13:26:08 NO SIGNIFICANT CHANGE Electronically Signed On 09-08-2024 14:58:06 ROUTE SERVICE MANAGER by Pablito Eagle D.O.
[2024-09-08 14:32] LABS: Troponin I < 0.012 ng/mL (0.000-0.034)
[2024-09-08] MEDS: SODIUM CHLORIDE 0.9% IV 1,000 ML 999 ML IV CONT (16:40)
--- NOTE | 2024-09-08 17:08 | PC.NURSE ---
Pt reports he is suddenly starting to feel better. Pt was able to ambulate while pushing a wheelchair to and from the restroom without further assistance. Pt reports he feels he will be safe to go home. Plan to finish IV fluids and re-evaluate.
== END 2024-09-08 17:36 | disposition home or self-care (01) ==
PROVIDERS: Student in an Organized Health Care Education/Training Program; Emergency Provider Emergency Medicine; PCP Nurse Practitioner Family
DX: F12.19 Cannabis abuse with unspecified cannabis-induced disorder (principal); G47.33 Obstructive sleep apnea (adult) (pediatric); M19.90 Unspecified osteoarthritis, unspecified site; Z86.711 Personal history of pulmonary embolism; Z87.891 Personal history of nicotine dependence; Z98.49 Cataract extraction status, unspecified eye; R90.82 White matter disease, unspecified; R00.0 Tachycardia, unspecified; I45.10 Unspecified right bundle-branch block; R94.31 Abnormal electrocardiogram [ECG] [EKG]
CPT/HCPCS: 36415; 70450; 71046; 80053; 83690; 84484; 85025; 85610; 85730; 93005; 96360; 99284; J7030

== ENCOUNTER 2024-12-29 10:08 | Outpatient (CLI) | payer MEDICARE, OTHER, SELFPAY ==
--- NOTE | ~2024-12-29 | XR_ITS ---
[id number] Ordering provider: Michelle Umanzor APRN History: . M47.812 - Spondylosis without myelopathy or radiculopathy... . Comparison: None. FINDINGS: VERTEBRAL BODIES: Loss of volume is seen in C5, C6 and C7. Prominence of osteophytes are seen anterio rly and the mentioned 3 vertebrae. Old fractures are not excluded. Minimal anterolisthesis seen at th e level of C3-C4. DISK SPACES: Narrowing of the disc C4-C5, C5-C6 and C6-C7. Multilevel facet joint disease. Multilevel uncovertebral joint osteoarthritic changes. PARASPINOUS SOFT TISSUES: No prevertebral soft tissue swelling. IMPRESSION: No acute osseous abnormality cervical spine. Chronic loss of volume of C5-C6 and C7. Multilevel degenerative disc disease, facet joint disease and uncovertebral joint osteoarthritic morales ges. Reviewed, dictated and finalized at location A. UNT SUPPORT REP IMPRESSION: No acute osseous abnormality cervical spine. Chronic loss of volume of C5-C6 and C7. Multilevel degenerative disc disease, facet joint disease and uncovertebral bety nt osteoarthritic changes.
== END 2024-12-29 10:09 | disposition home or self-care (01) ==
LOC: MICIMG 10:10
PROVIDERS: PCP Nurse Practitioner Family; Visit Provider Nurse Practitioner Family
DX: M47.812 Spondylosis without myelopathy or radiculopathy, cervical region (principal)
CPT/HCPCS: 72040

== ENCOUNTER 2025-01-11 08:56 | Outpatient (CLI) | payer MEDICARE, OTHER, SELFPAY ==
--- NOTE | ~2025-01-11 | MR_ITS ---
MRI of the cervical spine Clinical History: Spondylosis Technique: Axial T2-weighted and gradient images, and sagittal T1-weighted, T2-weighted, and STIR khushi ges were acquired. Findings: There is reversal normal cervical lordosis. No acute fracture seen. There is 3 mm anterolis thesis of C3 over C4. There is 4 mm anterolisthesis of C4 over C5. No suspicious bone marrow signal a bnormality seen. At C2-C3, there is mild degenerative change. There is facet arthropathy. There is moderate canal sten osis with mild flattening the ventral cord. There is bilateral neural foraminal narrowing, left worse than right. At C3-C4, there is moderate to advanced degenerative disc narrowing. There is posterior osteophyte wi th bilateral facet arthropathy. There is mild canal stenosis with minimal flattening of the ventral c ord. There is bilateral neural foraminal narrowing. At C4-C5, there is moderate to advanced degenerative disc narrowing. There is disc osteophyte complex with bilateral facet arthropathy. There is mild canal stenosis without lashay cord compression. There is severe right neural foraminal narrowing, and moderate to severe left neural foraminal narrowing. At C5-C6, there is severe degenerative spurring. Posterior osteophyte with facet arthropathy is prese nt. There is moderate canal stenosis with mild ventral cord flattening. There is advanced bilateral n eural foraminal narrowing, right worse than left. At C6-C7, there is severe degenerative disc narrowing. Posterior osteophyte complex results in modera te canal stenosis and mild ventral cord compression. There is severe bilateral neural foraminal narro wing. No abnormal signal seen in the spinal cord. Paravertebral soft tissues are otherwise unremarkable. Impression: Severe degenerative spondylosis throughout the cervical spine, with multilevel canal stenosis, cord c ompression, and neural foraminal narrowing. Reversal normal cervical lordosis with 3 mm anterolisthesis of C3 over C4 and 4 mm anterolisthesis of C4 over C5. Reviewed, dictated and finalized at [facility]. Impression: Severe degenerative spondylosis throughout the cervical spine, with multilevel canal stenosis, cord compression, and neural foraminal narrowing. Reversal normal cervical lordosis with 3 mm anterolisthesis of C3 over C4 and 4 mm anterolisthesis of C4 over C5.
== END 2025-01-11 08:57 | disposition home or self-care (01) ==
LOC: MICIMG 08:56
PROVIDERS: PCP Nurse Practitioner Family; Visit Provider Nurse Practitioner Family
DX: M47.812 Spondylosis without myelopathy or radiculopathy, cervical region (principal); G45.2 Multiple and bilateral precerebral artery syndromes
CPT/HCPCS: 72141

== ENCOUNTER 2025-01-21 20:39 | Emergency (ER) | payer MEDICARE, OTHER, SELFPAY ==
--- OUTSIDE RECORDS SUMMARY | 2025-01-21 20:41 | XMS_ITS | Clinical Summary ---
Author Organization [facility] Address [facility] [place] [address] Care Team Providers Care Potato Sorter Name Role Phone Evan Huggins MD Primary Care Provider [phone] Allergies No known active allergies Medications albuterol HFA (Ventolin HFA) 90 mcg/actuation inhaler Inhale 2 puffs every 4 (four) hours as needed 6 Active budesonide-form oteroL (SYMBICORT) 160-4.5 mcg/actuation inhaler Inhale 2 puffs 2 (two) times a day Active ofloxacin (OCUFLOX) 0.3 % ophthalmic solution ofloxacin 0.3 % eye drops Active Active Problems Problem Noted Date Diagnosed Date Chronic fatigue 05/06/2024 Memory loss 05/06/2024 Lumbar radiculopathy 05/06/2024 Encounter for Medicare annual wellness exam 04/25 Obstructive sleep apnea 05/06/2024 Mild persistent asthma without complication 04/25 Treatment-emergent central sleep apnea Assessment & Plan (01/09/2025 10:53 AM CDT): The patient stopped using his [employer] auto SV BiPAP unit 4 years ago when he developed a COVID pneumonia and then subsequently had an influenza pneumonia. His oral appliance is not treating his treatment emergent central sleep apnea adequately. I have recommended a new nocturnal polysomnogram with a split night protocol and he will follow up here in 4 months. Assessment & Plan (01/29/2021 11:14 AM CDT): The patient continue to wear his auto SV BiPAP at his current settings. [facility] PLMD (periodic limb movement disorder) Assessment & Plan (01/29/2021 11:14 AM CDT): Patient denies that his limbs are moving at night when he sleeps. I did give him a lab slip to get his iron and ferritin level completed. Encounters Date Type Department Care Team Description 01/09/2025 10:30 AM CDT Office Visit [facility] Pulmonary [address] [place] [address] Obie Pozo MD Treatment-emergent central sleep apnea (Primary Dx); Chronic fatigue from Last 3 Months Immunizations Immunization Administration Dates Next Due Influenza, Quadrivalent, Spl it, Preservative Free, Intramuscular 07/10/2018 Influenza, Trivalent, Preservative Free, Intramu scular 07/14/2016 Pneumococcal Polysaccharide PPV23 01/05/2020, Surgical History Surgery Date Site/Laterality Comments CATARACT EXTRACTION, BILATERAL Medical History Medical History Date Comments Sleep apnea, obstructive Family History Medical History Relation Name Comments Cancer Brother Stroke Brother Stroke; Coronary artery disease Father Vinicio nary artery disease; Coronary artery disease Mother Vinicio nary artery disease; Relation Name Status Comments Brother Father Mother Social History Tobacco Use Types Packs/Day Years Used Date Smoking Tobacco: Former Smokeless Tobacco: Never Comments:quit in 2007 Alcohol Use Standard Drinks/Week Comments No 0 (1 standard drink = 0.6 oz pur e alcohol) Sex and Gender Information Value Date Recorded Sex Assigned at Not on file 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 Gender Identity Not on file Sexual Orientation Not on file Obstetrics History Last Filed Vital Signs Vital Sign Reading Time Taken Comments Blood Pressure 158/86 01/09/2025 10:12 AM CDT Pulse 84 01/09/2025 10:12 AM CDT Temperature 36.3 C (97.3 F) 01/09/2025 10:12 AM CDT Respiratory Rate 18 01/09/2025 10:12 AM CDT Oxygen Saturation 96% 01/09/2025 10:12 AM CDT Inhaled Oxygen Concentration - - Weight 91.2 kg (201 lb) 01/09/2025 10:12 AM CDT Height 177.8 cm (5' 10 ) 01/09/2025 10:12 AM CDT Body Mass Index 28.84 01/09/2025 10:12 AM CDT Plan of Treatment Health Maintenance Due Date Last Done Comments Colon Cancer Screening-Colonoscopy 1956 Depression Screening 1956 Fall Risk Assessment 1956 Hepatitis C Screening 1956 Prostate Cancer Screening-PSA 1956 Hepatitis B Screening 1974 Zoster Vaccine (1 of 2) 2006 Pneumococcal vaccine 65+ (2 of 2 - PCV) 01/04/2021 01/05/2020, 02/22/2016, 01/25/2016, Additional history exists Abdominal Aortic Aneurysm (A AA) Screen 2021 Well Visit 65+ 2021 DTaP/Tdap/Td Vaccine (4 - Td or Tdap) 08/06/2034 08/06/2024, 07/07/2016, 09/25/2009 Influenza Vaccine Completed 07/07/2024, , 12/06/2019, Additional history exists Insurance [facility] CARE [facility] MEDICARE ADVANTAGE [facility] [employer] [facility] MEDICARE ADVANTAGE Care Teams Potato Sorter Relationship Specialty Start Date End Date Evan Huggins MD [address] [place] [address] PCP - General 12/14/20
--- OUTSIDE RECORDS SUMMARY | 2025-01-21 20:41 | XMS_ITS | Clinical Summary ---
Author Organization [facility] [employer] [facility] Address [address] [facility] [place] [address] Care Team Providers Care Drop Board Worker Name Role Phone Camilla Dickerson MD Primary Care Provider [phone] Source Comments [facility],non-owned Affiliates and Associated Physician Practices is amultiple site organization consisting of ambulatory clinics and hospital sitesin [place], [place], [place] and [place]. This disclosure is being madepursuant to the Care Everywhere program and may not contain all information available regarding this patient. Last updated 18.[employer] [facility] Allergies No known active allergies Medications * Be aware that medications may not be up to date on this document. Alwaysverify current medications with the patient. Medication Sig Dispensed Refills Start Date End Date Status albuterol HFA (PROVENTIL HFA) 108 (90 BASE) MCG/ACT inhalerIndications:Ac luanne bronchitis, unspecified organism Inhale 2 Puffs by mouth every 6 hours as needed for Wheezing or Cough 1 Inhaler 5 10/02/2016 Active Social History Tobacco Use Types Packs/Day Years Used Date Smoking Tobacco: Former Sex and Gender Information Value Date Recorded Sex Assigned at Not on file Gender Identity Not on file Sexual Orientation Not on file Last Filed Vital Signs Vital Sign Reading Time Taken Comments Blood Pressure 122/76 10/02/2016 6:54 PM PRESS CATCHER Pulse 72 10/02/2016 6:54 PM PRESS CATCHER Temperature 37 C (98.6 F) 10/02/2016 6:54 PM PRESS CATCHER Respiratory Rate 16 10/02/2016 6:54 PM PRESS CATCHER Oxygen Saturation 97% 10/02/2016 6:54 PM PRESS CATCHER Inhaled Oxygen Concentration - - Weight 95.3 kg (210 lb) 10/02/2016 6:54 PM PRESS CATCHER Height - - Body Mass Index - - Plan of Treatment Health Maintenance Due Date Last Done Comments COLOGUARD (AGES 45-75) - COL ON CA SCREENING 1956 COLON MONITORING 1956 COLONOSCOPY - COLON CA SCREENING 1956 CT COLONOGRAPHY - COLON CA SCREENING 1956 Colorectal Cancer Screening 1956 FIT - COLON CA SCREENING 1956 FLEX SIG - COLON CA SCREENING 1956 LIPID TESTING 1956 HEPATITIS C SCREENING 09/18/1974 DTAP/TDAP/TD VACCINES (1 - Tdap) 1975 PNEUMOCOCCAL VACCINE 50+ (1 of 1 - PCV) 2006 ZOSTER VACCINE (1 of 2) 2006 AAA SCREENING 2021 COVID-19 VACCINE (1 - 2023-2 5 season) 2024 INFLUENZA VACCINE (#1) 2024 DEPRESSION SCREENING 10/26/2024 Respiratory Syncytial Virus (RSV) Vaccine Pt: or over 60 yrs (1 - 1-dose 75+ series) 2031 HEPATITIS B VACCINE Aged Out No longe r eligible based on patient's age to complete this topic HIB VACCINE Aged Out No longer eligi ble based on patient's age to complete this topic HPV VACCINE Aged Out No longer eligi ble based on patient's age to complete this topic MENINGOCOCCAL (Group B) VACC INE SHARED DECISION-MAKING Aged Out No longer eligibl e based on patient's age to complete this topic MENINGOCOCCAL GROUPS A/C/Y/W VACCINE Aged Out No longer eligible b ased on patient's age to complete this topic Care Teams Drop Board Worker Relationship Specialty Start Date End Date Camilla Dickerson MD PCP - General Family Medicine 10/02/16
--- OUTSIDE RECORDS SUMMARY | 2025-01-21 20:41 | XMS_ITS | Referral Summary ---
Author Organization [facility] Address [address] [place] [address] Care Team Providers Care Doll Eye Setter Name Role Phone Evan Huggins MD Primary Care Provider [phone] Encounters Date Type Department Care Team Description 01/09/2025 10:30 AM CDT Office Visit [facility] Pulmonary [place] [address] [place] [phone] Obie Pozo MD Treatment-emergent central sleep apnea (Primary Dx); Chronic fatigue from Last 3 Months Allergies No known active allergies Medications albuterol [...] get his iron and ferritin level completed. 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
--- OUTSIDE RECORDS SUMMARY | 2025-01-21 20:41 | XMS_ITS | Clinical Summary ---
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 Gender Identity Not on file Sexual Orientation Not on file Plan of Treatment Health Maintenance Due Date Last Done Comments Hepatitis C Virus (HCV) Screening 1955 TdaP Immunization 1955 Colonoscopy 2001 Colorectal Cancer Screening 2001 Cologuard 2006 Immunochemical Fecal Occult Blood 2006 Zoster Immunization (1 of 2) 2006 PSA Discussion 2011 Pneumococcal Immunization (5 0+ years) (2 of 2 - PCV) 01/04/2021 01/05/2020, 02/22/2016 Influenza Immunization (#1) 06/26/202406/26, 07/14/2016 SARS-COV-2 Immunization ( season) 2024 Respiratory Syncytial Virus (RSV) Immunization (Adult) (1 - 1-dose 75+ series) 2031 Pneumococcal Immunization Combined Discontinued 01/05/2020, 02/22/2016 Hepatitis B Immunization Aged Out No longer eligible based on patient's age to complete this topic Meningococcal Immunization (ACWY) Aged Out No longer eligible based on patient's age to complete this topic Rotavirus Immunization Aged Out No lo nger eligible based on patient's age to complete this topic
[2025-01-21 21:00] VITALS: BP 169/108; PULSE 81; RESP 16; TEMP 36.6; O2SAT 93
[2025-01-21 21:31] VITALS: BP 143/94; PULSE 76; RESP 20; TEMP 37.1; O2SAT 96
--- OUTSIDE RECORDS SUMMARY | 2025-01-21 22:52 | XMS_ITS | Clinical Summary ---
Author Organization [facility] Address [address] [place] [address] Care Team Providers Care Casino Accountant Name Role Phone Camilla Dickerson MD Primary Care Provider [phone] Source Comments [facility],non-owned Affiliates and Associated Physician Practices is amultiple site organization consisting of ambulatory clinics and hospital sitesin [place], [place], [place] and [place]. This disclosure is being madepursuant to the Care Everywhere program and may not contain all information available regarding this patient. 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
--- OUTSIDE RECORDS SUMMARY | 2025-01-21 22:52 | XMS_ITS | Clinical Summary ---
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
--- OUTSIDE RECORDS SUMMARY | 2025-01-21 22:52 | XMS_ITS | Clinical Summary ---
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 MEDICARE ADVANTAGE [facility] [employer] [facility] MEDICARE ADVANTAGE Care Teams Pt Sitter Relationship Specialty Start Date End Date Evan Huggins MD [address] [place] [address] PCP - General 12/14/20
--- OUTSIDE RECORDS SUMMARY | 2025-01-21 22:52 | XMS_ITS | Referral Summary ---
Author Organization 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 Gender Identity Not on file Sexual Orientation [...] Plan of Treatment Not on file Insurance [facility] C[facility] MEDICARE ADVANTAGE [facility] Address: [address] [address] [place] [address] [facility] MEDICARE ADVANTAGE [facility] MEDIC[facility] Address: [address] [address] [place] [address] Care Teams Varnish Maker Relationship Specialty Start Date End Date Evan Huggins MD [address] [place] [address] PCP - General 12/14/20
--- NOTE | 2025-01-21 22:53 | ED_ITS ---
HPI - Epistaxis General Chief complaint: Epistaxis Stated complaint: Nosebleed while watching TV Time Seen by Provider: 01/21/25 22:32 Source: patient Mode of arrival: ambulatory Limitations: no limitations History of Present Illness HPI Narrative: Patient is a 69-year-old male who presents to the ED with report of epistaxis. Patient reports he was lying down watching TV at home when he suddenly developed a left-sided epistaxis. States the blood was gushing out. Prompted here for further evaluation. Patient denies history of frequent nosebleeds. He is not on any anticoagulation. He does take Advil frequently for arthritis pain. Denies dizziness, lightheadedness, syncope, headache, nausea. Related Data Home Medications ?Medication ?Instructions ?Recorded ?Confirmed ?Last Taken ?Type cetirizine 10 mg tablet 10 mg PO DAILY PRN 06/09/24 12/27/24 Unknown History testosterone 1.62 % (20.25 mg/1.25 topical 06/09/24 12/27/24 Unknown History gram) transdermal gel packet fluticasone furoate 27.5 1 spray intranasal DAILY PRN 12/27/24 12/27/24 Unknown History mcg/actuation nasal spray,suspension (Flonase Sensimist) guaifenesin 600 mg tablet, 600 mg PO BID PRN 12/27/24 12/27/24 Unknown History extended release 12 hr (Mucinex) Allergies Allergy/AdvReac Type Severity Reaction Status Date / Time No Known Allergies Allergy Verified 01/21/25 20:40 Review of Systems Review of Systems: All systems reviewed & are unremarkable except as noted in HPI. 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 Normal cardiac stress test (05/09/16) Pulmonary embolism Surgical History Surgical History History of cataract extraction 2020 Family History Family History Father Family history of heart disease in male family member before age 55 Hypertension Mother Hypertension Sibling Lung cancer Hypertension Social History Social History Social History: Surrogate decision maker: Malia Washington, daughter. Code status: Full code. Smoking packs per day: 1.5 Smoking cigarettes per day: 30.0 Years smoked: 20 Smoking pack-years: 30.00 Smoking status: Former smoker Tobacco type: cigarettes Second hand tobacco smoke exposure: No Alcohol intake: current Drinks per week: 3 Substance use: never Do You Feel Safe in your Home?: Yes Lack of Transportation: No Lack of Food: Never True Current Housing: I Have Housing Concerned About Future Housing: No Difficulty Paying Gas/Electric Bills: No Difficulty Paying for Meds: No Currently Unemployed: No Education: Bachelor's Degree Difficulty w/ Childcare or Family Care: No Living arrangements: alone Additional living arrangements comments: Patient lives in his own home in [place]. Additional occupation/education comments: Retired from the [employer] after 21 years. Gender identity (if verbalized by the patient): Male Exam Narrative: GENERAL: Well appearing, well-nourished, non-toxic, in no acute distress. HEAD: Normocephalic, atraumatic. ENT: No active epistaxis. Some dried blood in left nare vestibule. No septal hematoma. No friable tissue. No blood draining down posterior pharynx. RESPIRATORY: Airway patent, respirations nonlabored. CARDIOVASCULAR: Regular rate and rhythm MUSCULOSKELETAL: Moves all extremities. No gross deformities. SKIN: Warm, dry, normal color. NEURO: A&O X3. Speech clear. Steady gait. No ataxic movements. PSYCHIATRIC: Appropriate mood and affect. Normal interaction. Course Vital Signs Vital signs: Vital Signs Temperature 97.9 F 01/21/25 21:00 Pulse Rate 81 01/21/25 21:00 Respiratory Rate 16 01/21/25 21:00 Blood Pressure 169/108 H 01/21/25 21:00 Pulse Oximetry 93 01/21/25 21:00 Oxygen Delivery Room Air 01/21/25 21:00 Temperature 98.7 F 01/21/25 21:31 Pulse Rate 76 01/21/25 21:31 Respiratory Rate 20 01/21/25 21:31 Blood Pressure 143/94 H 01/21/25 21:31 Pulse Oximetry 96 01/21/25 21:31 Oxygen Delivery Room Air 01/21/25 21:00 MDM - Epistaxis MDM Narrative Medical decision making narrative: Patient presented to ED with left nare epistaxis. Given nasal clamp upon arrival to the ED. Upon my evaluation, patient has no active epistaxis. He feels ready to go home. Vitals are stable. No evidence of hemodynamic instability. No septal hematoma on exam. No evidence of posterior epistaxis. Feel patient is safe for discharge home at this time. Discussed further nose bleed care if symptoms recur. Will refer to ENT for further evaluation if needed. Given return precautions. Patient in agreement with plan. Discharged in stable condition. Medical Records Attestation: I reviewed the patient's medical records. Discharge Plan Discharge Clinical Impression: Epistaxis Patient Disposition: Home, Self-Care Condition: Stable Instructions: Antibiotic Form, Nosebleed (ED) Additional Instructions: Follow up with ENT for further evaluation. Avoid rubbing or blowing your nose f or the next few days. Recommend humidifier or placing Vaseline inside nostrils at night to avoid drying out. You may also use nasal spray/saline spray to nose to keep moist. If bleeding recurs, utilize Afrin to nostrils and place nasal clamp for approximately 30 minutes. Do not adjust or move the clamp for at least 30 minutes. If bleeding does still persistent after 30 minutes, replace clamp for an additional 15 minutes. If bleeding is still persistent after 1 hour, return to the ED for further evaluation. Additionally, return if you experience severe pain, weakness, passing out, significant dizziness, or any other symptoms of concern. Patient Language: Lithuanian Prescriptions: No Action cetirizine 10 mg tablet 10 mg PO DAILY PRN testosterone 1.62 % (20.25 mg/1.25 gram) gel in packet topical guaifenesin [Mucinex] 600 mg tablet extended release 12hr 600 mg PO BID PRN modafinil [Provigil] 200 mg tablet 400 mg PO QAM Qty: 60 0RF Flonase Sensimist 27.5 mcg/actuation spray,suspension 1 spray intranasal DAILY PRN Rx Instructions: into each nostril ropinirole 0.25 mg tablet 0.25 mg PO QHS Qty: 90 0RF Follow-up/Referrals: Carlos Eduardo Menendez MD [Physician] - (ENT) Michelle Umanzor APRN [Primary Care Provider] - Time of Disposition: 22:56
== END 2025-01-21 23:07 | disposition home or self-care (01) ==
PROVIDERS: Emergency Provider Physician Assistant; PCP Nurse Practitioner Family
DX: R04.0 Epistaxis (principal); M19.90 Unspecified osteoarthritis, unspecified site; G47.33 Obstructive sleep apnea (adult) (pediatric); Z86.711 Personal history of pulmonary embolism; Z87.891 Personal history of nicotine dependence; Z98.49 Cataract extraction status, unspecified eye; Z79.899 Other long term (current) drug therapy
CPT/HCPCS: 99281